=== PATIENT | male | born 1990 | race African-American/Black ===

== ENCOUNTER 2016-03-28 19:13 | Emergency (ER) | payer BC ==
[~2016-03-28] VITALS: Ht 182.9 cm; Wt 85.0 kg
[~2016-03-28 19:13] MED LIST: AMOXICILLIN 8751 TAB PO; CEPHALEXIN500 M1 PO; HUMALOG PEN100 U/ML SC; HUMALOG100 U/ML SQ; INSULIN HUMA100 U/ML; INSULIN HUMA100 U/ML SC; INSULIN LANTUS; LANTUS100 U/ML SC; LORTAB 5/500 501 TAB PO; NAPROSYN500 MG PO; PEN-VEE K500 MG PO; ZOFRAN 4MG T4 MG/TAB PO
[2016-03-28 19:18] VITALS: BP 130/88; TEMP 98.6
[2016-03-28] MEDS ORDERED: AMOXICILLIN 50500 MG PO (20:52)
[2016-03-28 22:03] VITALS: PULSE 64
== END 2016-03-28 22:04 | disposition home or self-care (01) ==
LOC: COL.ER 19:13
DX: K08.89 Other specified disorders of teeth and supporting structures (principal); E10.9 Type 1 diabetes mellitus without complications; Z79.4 Long term (current) use of insulin

== ENCOUNTER 2016-09-27 19:42 | Emergency (ER) | payer BC ==
[~2016-09-27] VITALS: Ht 180.3 cm; Wt 80.1 kg
[~2016-09-27 19:42] MED LIST changes: +AMOXICILLIN 50500 MG PO
[2016-09-27 19:48] VITALS: BP 133/71; PULSE 98; TEMP 97.5
[2016-09-27] MEDS ORDERED: HUMALOG PEN100 U/ML SQ (22:22)
[2016-09-27] MEDS ORDERED: PEN-VEE K500 MG PO (22:22)
== END 2016-09-27 22:41 | disposition home or self-care (01) ==
LOC: COL.ER 19:42
DX: E10.65 Type 1 diabetes mellitus with hyperglycemia (principal); K08.89 Other specified disorders of teeth and supporting structures; Z79.4 Long term (current) use of insulin; Z76.0 Encounter for issue of repeat prescription
CPT/HCPCS: J1815

== ENCOUNTER 2020-06-21 00:01 | Emergency (ER) | payer SELFPAY ==
[~2020-06-21] VITALS: Ht 182.9 cm; Wt 87.3 kg
[~2020-06-21 00:01] MED LIST changes: +HUMALOG PEN100 U/ML SQ
[2020-06-21 00:25] VITALS: TEMP 98.1
[2020-06-21 02:00] VITALS: BP 137/93; PULSE 62
== END 2020-06-21 02:02 | disposition home or self-care (01) ==
LOC: COL.ER 00:01
PROVIDERS: Emergency Medicine
DX: R19.5 Other fecal abnormalities (principal)